=== PATIENT | female | born 1990 | race Caucasian/White ===

== ENCOUNTER → 2019-03-21 14:24 | Outpatient (BNVA) | payer OTHER, SELFPAY | PROVIDERS: Family Provider Nurse Practitioner Family; Visit Provider Obstetrics & Gynecology Female Pelvic Medicine and Reconstructive Surgery | DX: Z12.4 Encounter for screening for malignant neoplasm of cervix (principal); Z78.9 Other specified health status; E66.01 Morbid (severe) obesity due to excess calories | CPT/HCPCS: 88175 ==

== ENCOUNTER → 2021-12-23 09:05 | Outpatient (BNVA) | payer BC, MEDICAID, SELFPAY | PROVIDERS: Family Provider Nurse Practitioner Family; PCP Nurse Practitioner Family; Visit Provider Nurse Practitioner Family | DX: M25.50 Pain in unspecified joint (principal); M25.40 Effusion, unspecified joint; L50.9 Urticaria, unspecified | CPT/HCPCS: 80053; 84439; 84443; 84481; 85025; 86140; 86160; 86162; 86235; 86255; 86376; 86431; 86618; 86666; 86757 ==

== ENCOUNTER → 2022-01-04 08:51 | Outpatient (BNVA) | payer BC, MEDICAID, SELFPAY | PROVIDERS: Family Provider Nurse Practitioner Family; PCP Nurse Practitioner Family; Visit Provider Nurse Practitioner Family | DX: R94.6 Abnormal results of thyroid function studies (principal) | CPT/HCPCS: 82306 ==

== ENCOUNTER 2022-01-14 07:06 | Outpatient (CLI) | payer BC, MEDICAID, SELFPAY ==
--- NOTE | 2022-01-14 07:15 | US_ITS ---
WS: [id number] THYROID ULTRASOUND HISTORY: R94.6 - Abnormal results of thyroid function studies COMPARISON: None available. Right lobe: 2.3 cm x 1.3 cm x 4.5 cm (w x ap x l). Volume: 6.7 cm3. Normal size and echotexture. No significant are dominant nodules are present. Left lobe: 1.6 cm x 1.2 cm x 4.2 cm (w x ap x l). Volume: 4.3 cm3. Normal size and echotexture. No significant or dominant nodules are present. Isthmus: 0.3 cm. Prominent bilateral cervical chain lymph nodes but these are normal shape with a normal fatty hilum a nd no increased vascularity. US/US thyroid [id number] IMPRESSION: Normal thyroid ultrasound.
== END 2022-01-14 07:07 | disposition home or self-care (01) ==
LOC: RAD 07:07
PROVIDERS: Family Provider Nurse Practitioner Family; PCP Nurse Practitioner Family; Visit Provider Nurse Practitioner Family
DX: R94.6 Abnormal results of thyroid function studies (principal)
CPT/HCPCS: 76536